=== PATIENT | female | born 1995 | race Caucasian/White ===

== ENCOUNTER 2023-07-27 00:02 | Emergency (ER) | payer BC, SELFPAY ==
--- NOTE | 2023-07-27 00:13 | PC.NURSE ---
When establishing an IV and obtained blood samples the guest in the room became lightheaded (their own statement) and went to sit down on the chair. After sitting down for apporximatley one minute the patient seemed to have had an episode of LOC and had snoring respirations. The patient then regained consciousness and presented A&OX4. Vitals were obtained and are as followed: blood pressure 83/40, temperature 96.9 temporally, SPO2 100% room air, 16RR, and pulse was 48 bpm. Patient was then taken to room 1 to be checked in and checked out by nursing staff.
--- NOTE | 2023-07-27 00:17 | ECG_ITS ---
Measurements Intervals [place] Rate: 43 P: 5 ME: 147 QRS: 1 QRSD: 95 T: 3 QT: 590 QTc: 499 Interpretive Statements SINUS BRADYCARDIA LOW QRS VOLTAGE LONG QT INTERVAL ABNORMAL ECG NO PREVIOUS ECG AVAILABLE FOR COMPARISON Electronically Signed On 07-27-2023 7:26:56 [employer] by Ion Hong M.D.
--- NOTE | 2023-07-27 00:18 | ED.DIZZY ---
HPI - Dizziness General Chief Complaint: Dizziness Stated Complaint: Passed Out Time Seen by Provider: 07/27/23 00:12 History of Present Illness HPI Narrative: 28-year-old female presents to the emergency department for syncopal episode. Patient was a guest in the emergency department while her significant other was being seen. She wanted to watch the IV be inserted on her significant other and began to feel lightheaded and woozy. She sat down in a chair and lost consciousness for a few seconds. She did not fall out of the chair or hit her head. She states this happens every time she gets her blood drawn. She also states her heart rate runs between 40s and 50s at baseline as her blood pressure is normally low. States her LMP was approximately 1 week ago. Denies concern for . Denies chest pain, shortness of breath, abdominal pain, nausea vomiting, diarrhea, urinary complaints, fever. The event was witnessed by a nurse in the room. Review of Systems Review of Systems: CONSTITUTIONAL: Denies fever, chills, or sweats. EYES: Denies visual changes, redness, or discharge. ENT: Denies rhinorrhea, congestion, sore throat, or otalgia. CARDIOVASCULAR: Denies chest pain, palpitations, or edema. RESPIRATORY: Denies cough or dyspnea. GASTROINTESTINAL: Denies abdominal pain, nausea, vomiting, or diarrhea. GENITOURINARY: Denies dysuria or hematuria. SKIN: Denies rash or itching. MUSCULOSKELETAL: Denies back pain, joint pain, or myalgia. NEUROLOGIC: See HPI PSYCHIATRIC: Denies anxiety or depression. Exam Narrative: GENERAL: Well-appearing, well-nourished, and in no acute distress. HEAD: Normocephalic, atraumatic. EYES: PERRLA and EOMI. ENT: Nares clear, no rhinorrhea or epistaxis. Mucous membranes moist. NECK: Supple. CHEST: Clear to auscultation. No respiratory distress. HEART: Regular rate and rhythm. No murmur heard. Normal peripheral pulses. ABDOMEN: Soft, nontender, nondistended, normal active bowel sounds. EXTREMITIES: Normal range of motion. No edema. SKIN: Warm, dry, no rash. NEURO: No focal deficits. Alert and oriented x3. Moving all extremities spontaneously. Course Vital Signs Vital signs: Vital Signs Temperature 96.9 F L 07/27/23 00:27 Pulse Rate 48 L 07/27/23 00:27 Respiratory Rate 16 07/27/23 00:27 Blood Pressure 83/40 L 07/27/23 00:27 Pulse Oximetry 100 07/27/23 00:27 Oxygen Delivery Room Air 07/27/23 00:27 Temperature 96.9 F L 07/27/23 00:27 Pulse Rate 52 L 07/27/23 01:22 Respiratory Rate 20 07/27/23 01:22 Blood Pressure 104/69 07/27/23 01:22 Pulse Oximetry 99 07/27/23 01:22 Oxygen Delivery Room Air 07/27/23 00:27 MDM - Dizziness MDM Narrative Medical decision making narrative: 28-year-old female presents to the emergency department after syncopal episode that occurred while watching an IV inserted into another patient the department. See HPI for further history. She did not fall to ground or hit her head. There was no injuries acquired. Event was witnessed by nurse in the room. This is consistent with vasovagal syncope. EKG shows sinus bradycardia with a rate of 43 she had a prolonged QT interval of 590. Patient reports chronic bradycardia. I offered IV fluids, blood work and test, however patient declined. She is ambulatory in the ED without symptoms and has returned to her baseline. Discussed EKG findings. Will discharge her home with PCP and cardiology follow-up. Return precautions discussed. She is agreeable to plan verbalized understanding. Discharged stable condition. Discharge Plan Discharge Clinical Impression: Syncope, vasovagal, Prolonged QT interval, Bradycardia Patient Disposition: Home, Self-Care Condition: Stable Instructions: Antibiotic Form, Syncope (DC) Additional Instructions: You were evaluated in the emergency department after he passed out while watching a blood draw. This is likely secondary to v
[2023-07-27 00:27] VITALS: BP 83/40; PULSE 48; RESP 16; TEMP 36.1; O2SAT 100
[2023-07-27 00:31] VITALS: BP 111/68; PULSE 45; RESP 20; O2SAT 96
[2023-07-27 01:22] VITALS: BP 104/69; PULSE 52; RESP 20; O2SAT 99
== END 2023-07-27 01:48 | disposition home or self-care (01) ==
PROVIDERS: Emergency Provider Physician Assistant
DX: R55 Syncope and collapse (principal); R94.31 Abnormal electrocardiogram [ECG] [EKG]; R00.1 Bradycardia, unspecified
CPT/HCPCS: 93005; 99283

== ENCOUNTER 2024-09-20 08:56 | Outpatient (CLI) | payer OTHER, SELFPAY ==
--- NOTE | ~2024-09-20 | US_ITS ---
Right upper thigh ULTRASOUND (Doppler ultrasound interrogation techniques used as needed for this exa m.) Ordering provider: Shabana Gotti, ANP History: . Localized swelling, mass and lump, right lower limb . Comparison: None. FINDINGS/impression: Complex echogenicity area measuring 2.4 x 0.6 x 2.4 cm. Differential include lipoma versus fat-contai mavis mass minimal edema between fat lobules is also possible.. Follow-up advised. Reviewed, dictated and finalized at location A.
== END 2024-09-20 08:57 | disposition home or self-care (01) ==
PROVIDERS: PCP Nurse Practitioner; Visit Provider Nurse Practitioner
DX: R22.41 Localized swelling, mass and lump, right lower limb (principal)
CPT/HCPCS: 76882

== ENCOUNTER 2024-10-18 13:13 | Outpatient (CLI) | payer OTHER, SELFPAY ==
--- NOTE | ~2024-10-18 | CT_ITS ---
EXAMINATION: CT LE RT wo/w con DATE: 10/18/2024 13:46 INDICATION: Right thigh mass TECHNIQUE: High resolution computed tomography (CT) of the right thigh was performed without and with 100 mL Omnipaque-350. Additional sagittal and coronal reconstructions were performed. Automated expo sure control and iterative reconstruction technique were employed. The dose-length product was 926.89 mGy-cm. COMPARISON: Ultrasound dated 09/20/2024 FINDINGS: There are a few small normal sized right inguinal lymph nodes with central echogenic fatty wanda. No p athologically enlarged right pelvic or inguinal lymphadenopathy. Musculature in the neurovascular str uctures in the right thigh appear normal. No abnormal masses or fluid collections identified. Bone al ignment is normal. No fracture, osteonecrosis or suspicious lytic or blastic bone lesions. Right hip and knee joint spaces appear normal with no joint effusions. The bladder, uterus and visualized porti ons of the bowel and adnexa are unremarkable. IMPRESSION: 1. No correlate identified for the palpable abnormality of concern. No abnormal masses, fluid collect ions or pathologically enlarged lymphadenopathy. Reviewed, dictated and finalized at location A. IMPRESSION: 1. No correlate identified for the palpable abnormality of concern. No abnormal masses, fluid collections or pathologically enlarged lymphadenopathy.
== END 2024-10-18 13:14 | disposition home or self-care (01) ==
LOC: MICIMG 13:14
PROVIDERS: PCP Nurse Practitioner; Visit Provider Nurse Practitioner
DX: R22.41 Localized swelling, mass and lump, right lower limb (principal)
CPT/HCPCS: 73702; Q9967